=== PATIENT | male | born 1955 | race Caucasian/White ===

== ENCOUNTER 2018-05-13 07:46 | Day surgery (SDC) | payer BC ==
[~2018-05-13] VITALS: Ht 172.7 cm; Wt 90.9 kg
--- NOTE | ~2018-05-13 | OP ---
PATIENT NAME: CATY CORONA MEDICAL RECORD: [id number] :59 LOCATION:D.OPS ADMISSION DATE: SURGEON: DYLON HENSON MD DATE OF OPERATION: 05/13/2018 PREOPERATIVE DIAGNOSIS: History of a complex colon polyp at 43 cm. POSTOPERATIVE DIAGNOSES: History of complex colon polyp at 43 cm and the polyp was on a fold. I could not identify a tattoo. Left inferior prostate nodule. PROCEDURES: 1. Total colonoscopy to cecum. 2. Polypectomy utilizing the argon plasma cavalry scout. 3. Submucosal tattooing proximal and distal to the polyp at 43 cm. SURGEON: Dylon Henson MD SEAT BUILDER: None. BLOOD LOSS: Minimal. ANESTHESIA: General. COMPLICATIONS: None. The risks, possible complications and alternatives to the procedure were explained to the patient. He elects to proceed. OPERATIVE COURSE: The patient was conveyed the operating room electively on 05/13/2018. General anesthesia was induced by the anesthesia staff. The patient was placed in the Raygoza position. A digital rectal examination was performed. This revealed a left inferior prostate nodule that has been evaluated by Dr. Bower. A colonoscope was inserted through the anus. It was easily advanced to the cecum. The prep was adequate. I slowly withdrew the endoscope. I irrigated and aspirated extensively. I dragged the folds. A combination of normal imaging and narrow band imaging were utilized. The polyp was easily identifiable at 43 cm. I noted no tattooing. Cold endoscopic biopsies were performed of the polyp as well as some hot biopsy forceps treatment on either side of the polyp. I then ablated the remaining portion of the polyp with the argon plasma cavalry scout utilizing the right colon setting in the forced mode. I then advanced a sclerotherapy needle. A submucosal tattooing was performed proximal and distal to the polypectomy site utilizing 3 cc of Keiry ink at both sites. The endoscope was then withdrawn into the rectum. A retroflexed view was obtained in the rectum. I then unretroflexed the scope and removed it under direct vision. I will see the patient in my office in 2-3 weeks. As there has been significant regrowth of the polyp, I will plan for another colonoscopy with the argon plasma cavalry scout in 1 year. No family members were present in the outpatient department. TRANSINT:[id number] Voice Confirmation ID: [id number] DOCUMENT ID: [id number] OPERATIVE REPORT [id number] CATY CORONA ROBERT MD at 1746 CC: CHU HAJI MD and NAIF VILLAVICENCIO [id number] DICTATION DATE: 05/13/18 1250 TOPOGRAPHICAL FIELD ASSISTANT: 05/13/[address] [facility] 05/13/18 [facility] [address] [id number]
[~2018-05-13 07:46] MED LIST: LISINOPRIL10 MG PO; OMEPRAZOLE20 M1 PO; PROAIR HFA8.5 GM INH
[2018-05-13 08:04] LABS: HEMATOCRIT 43.1 % (42.0-54.0); HEMOGLOBIN 14.8 g/dL (13.5-17.5); MCH 32.8 pg (26.0-34.0); MCHC 34.3 g/dL (31.0-37.0); MCV 95.6 fL (80.0-100.0); MEAN PLATELET VOLUME 9.4 fL (7.4-10.4); RBC 4.51 10x6/uL (4.20-6.10); RDW 13.2 % (11.5-14.5); WBC 5.9 10x3/uL (4.8-10.8)
[2018-05-13 09:02] VITALS: BP 155/80; Ht 172.7 cm; Wt 90.9 kg
== END 2018-05-13 13:30 | disposition home or self-care (01) ==
LOC: D.OPS 07:46 → D.PAN 10:15 → D.OPS 10:25 → D.PAN 11:35 → D.OPS 11:35
PROVIDERS: Anesthesiology
DX: K63.5 Polyp of colon (principal); I10 Essential (primary) hypertension; K21.9 Gastro-esophageal reflux disease without esophagitis; Z01.812 Encounter for preprocedural laboratory examination

== ENCOUNTER 2019-07-18 05:41 | Day surgery (SDC) | payer BC ==
[~2019-07-18] VITALS: Ht 172.7 cm; Wt 90.9 kg
[2019-07-18 06:05] LABS: HEMATOCRIT 46.7 % (42.0-54.0); HEMOGLOBIN 16.5 g/dL (13.5-17.5); MCH 33.1 pg (26.0-34.0); MCHC 35.3 g/dL (31.0-37.0); MCV 93.8 fL (80.0-100.0); MEAN PLATELET VOLUME 9.5 fL (7.4-10.4); RBC 4.98 10x6/uL (4.20-6.10); RDW 13.3 % (11.5-14.5); WBC 7.7 10x3/uL (4.8-10.8)
[2019-07-18 06:45] VITALS: Ht 172.7 cm; Wt 90.9 kg
--- NOTE | 2019-07-18 09:42 | HP ---
PATIENT: CATY CORONA MEDICAL RECORD: [id number] ACCOUNT: [id number] LOCATION:[facility] : 59 ADMISSION DATE: 07/18/19 PCP: CHU HAJI MD HISTORY AND PHYSICAL EXAMINATION HISTORY: The patient has a history of recurrent polyp at 43 cm, which was a tubular adenoma with low-grade atypia/dysplasia. He underwent a colonoscopy about a year ago. This has been tattooed. He has had no abdominal pain. No rectal bleeding. ALLERGIES: No known drug allergies. HOME MEDICATIONS: Lisinopril, omeprazole. SOCIAL HISTORY: He is a nonsmoker. PAST MEDICAL AND SURGICAL HISTORY: Hypertension, gastroesophageal reflux, history of colon polyps. PHYSICAL EXAMINATION: GENERAL: The patient does not appear acutely ill. He does not appear chronically ill. VITAL SIGNS: Reviewed. EARS: External ears appear normal. EYES: Extraocular movements are intact. NECK: Trachea midline. CHEST: No intercostal retractions. PULMONARY: Nonlabored, no stridor. ABDOMEN: Nontender. IMPRESSION: History of a tubular adenoma with low-grade atypia/dysplasia at 43 cm, which was a tattooed polyp. PLAN: Colonoscopy with polypectomy. TRANSINT:[id number] Voice Confirmation ID: [id number] DOCUMENT ID: [id number] DYLON HENSON MD at 0942 CC: CHU HAJI MD and NAIF VILLAVICENCIO [id number] DICTATION DATE: 07/18/19 09 TECHNICAL OPERATIONS VICE PRESIDENT: 07/18/19 [id number] [place] [address]
--- NOTE | 2019-07-18 10:15 | NUR ---
1005 PORTABLE CXR DONE. VIEWED BY DR. HENSON. [facility] FOR D/C. UP TO BATHROOM. PASSING FLATUS. Luis Carlos MARQUEZ R.N.
--- NOTE | 2019-07-18 10:22 | NUR ---
1020 BACK TO BED. SERVED FULL LIQUID DIET. CONTINUES TO COMPLAIN ABOUT ABDOMINAL CRAMPING. Luis Carlos MARQUEZ R.N.
--- NOTE | 2019-07-18 10:42 | NUR ---
1040 AWAKE & ALERT. TAKING FULL LIQUID DIET WITHOUT COMPLAINTS OF NAUSEA. NO EMESIS. IV DC'ED WITH CATH INTACT. UP TO BATHROOM. COMPLAINS OF ABDOMINAL CRAMPING. Luis Carlos MARQUEZ R.N.
--- NOTE | 2019-07-18 12:01 | OP ---
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 Left-sided prostate nodule, which is a known entity and has been worked up by Dr. Bower. PROCEDURES: 1. Total colonoscopy to cecum. 2. Endoscopic mucosal resection and polypectomy of the polyp at 43 cm. 3. Placement of 2 endoscopic clips for a post-procedural hemostasis. SURGEON: Dylon Henson MD ELECTION SUPERVISOR: None. BLOOD LOSS: Minimal. ANESTHESIA: IV sedation. COMPLICATIONS: None. The risks, possible complications, and alternatives to the procedure were explained to the patient. He elects to proceed. The discussion specifically included, but was not limited to, bleeding requiring emergency reoperation, infection, endoscopic perforation. ENDOSCOPIC COURSE: The patient was conveyed to the endoscopy suite electively on 07/18/2019. IV sedation was induced by the anesthesia staff. The patient was placed in the Raygoza position. A digital rectal examination was performed. A colonoscope was inserted through the anus. It was easily advanced to the cecum. The prep was excellent. I slowly withdrew the endoscope. I dragged the folds. I irrigated and aspirated extensively. A combination of normal imaging and narrow band imaging were utilized. I identified the polyp, which was on a fold right next to the tattoo. I advanced an endoscopic sclerotherapy needle. A submucosal injection of epinephrine was performed for a post-procedural hemostasis. There was a good lift that was created on the pillow of epinephrine. I then advanced the sclerotherapy needle and injected Eleview underneath the polyp. I then advanced an endoscopic snare and was able to snare the polyp off utilizing the coagulation setting and then the cut setting. The polyp was sucked up in a polyp trap. Some additional biopsies of the tissue around the polyp were performed and these were cold endoscopic biopsies. I then ablated the surrounding tissue with the argon plasma personal secretary utilizing the right colon setting in the forced mode. There was some bleeding and this was controlled with the application of 2 endoscopic clips. I then slowly withdrew the endoscope. I continued to irrigate and aspirate and drag the folds. A retroflexed view was obtained in the rectum. I then unretroflexed the scope and removed it under direct vision. OPERATIVE REPORT [id number] CJCATYMARTITA TIM I will see the patient in my office in 2-3 weeks. Unless he has worrisome pathologic findings, I plan for his next colonoscopy to take place in 2 years. TRANSINT:[id number] Voice Confirmation ID: [id number] DOCUMENT ID: [id number] 07/18/2019 Edited for mary duggan. DYLON HENSON MD at 1201 CC: NAIF VILLAVICENCIO [id number] DICTATION DATE: 07/18/19 1004 INVENTORY MANAGEMENT SPECIALIST: 07/18/19 [address] [facility] [address] [id number]
--- NOTE | 2019-07-18 14:30 | NUR ---
1124 AWAKE & ALERT, DRESSED SITTIN UP IN CHAIR @ BEDSIDE. GIVEN DISCHARGE INFORMATION INCLUDING MED REC., SHEET LISTING NSAIDS TO AVOID, RTC APPT., [facility] OPS POST ENDOSCOPIC PROCEDURES D/C INSTRUCTIONS, & SHEET LISTING HIGH FIBER FOODS FOR DIET. PT VOICED UNDERSTANDING. SITTING UP IN CHAIR @ BEDSIDE AWAITING RIDE. Luis Carlos MARQUEZ R.N. 1152 TO PRIVATE CAR PER WHEELCHAIR BY STAFF. HOME WITH FRIEND, CATHY. Luis Carlos MARQUEZ R.N.
== END 2019-07-18 11:52 | disposition home or self-care (01) ==
LOC: D.OPS 05:41
PROVIDERS: Anesthesiology; ATTEND Surgery
DX: D12.6 Benign neoplasm of colon, unspecified (principal); K63.5 Polyp of colon; K91.61 Intraoperative hemorrhage and hematoma of a digestive system organ or structure complicating a digestive system procedure; Y83.9 Surgical procedure, unspecified as the cause of abnormal reaction of the patient, or of later complication, without mention of misadventure at the time of the procedure